=== PATIENT | female | born 1995 | race Hispanic/Latino ===

== ENCOUNTER 2017-09-17 21:16 | Emergency (ER) | payer MEDICAID, OTHER ==
[~2017-09-17 21:16] MED LIST: PREN1TAB89 PO
== END 2017-09-17 21:45 | disposition home or self-care (01) ==
LOC: EDH 21:16
DX: B88.0 Other acariasis (principal); Z98.890 Other specified postprocedural states
CPT/HCPCS: 99281

== ENCOUNTER 2017-11-13 22:09 | Emergency (ER) | payer OTHER ==
[2017-11-13 22:59] LABS: APPEARANCE,URINE Clear (CLEAR); BILIRUBIN,URINE Negative (NEGATIVE); COLOR,URINE Yellow (YELLOW); GLUCOSE, URINE (UA) Negative (NEGATIVE); KETONES,URINE Negative (NEGATIVE); LEUKOCYTE ESTERASE ,URINE Small (NEGATIVE); NITRATE,URINE Positive (NEGATIVE); OCCULT BLOOD,URINE Negative (NEGATIVE); PH,URINE 6.5 (5.0-8.0); PROTEIN,URINE Negative (NEGATIVE)
[2017-11-13 23:00] LABS: HCG,QUAL RESULT NEGATIVE (NEGATIVE)
[2017-11-13 23:15] LABS: BACTERIA,URINE Few /HPF (None Seen); RBC,URINE None Seen /HPF (0-1); SQUAMOUS EPITHELIAL CELL,UR Moderate /HPF (0-2)
== END 2017-11-13 23:20 | disposition home or self-care (01) ==
LOC: EDH 22:09
DX: N39.0 Urinary tract infection, site not specified (principal)
CPT/HCPCS: 81001; 81025

== ENCOUNTER 2018-07-23 20:45 | Observation (INO) | payer MEDICAID, OTHER ==
[~2018-07-23] VITALS: Ht 157.5 cm; Wt 89.4 kg
[2018-07-23] MEDS ORDERED: ONDANSETRON HCL 4 MG/2 ML VIAL ONE (21:04)
[2018-07-23] MEDS ORDERED: SODIUM CHLORIDE 0.9% 1000ML 1,000 ML IV ONE (21:04)
[2018-07-23] MEDS ORDERED: MORPHINE SULFATE 4 MG/1ML SYG ONE (21:04)
[2018-07-23 21:08] LABS: BASOPHILS % (AUTO) 0.3 % (0.0-5.0); EOSINOPHILS % (AUTO) 1.4 % (0.0-8.0); HEMATOCRIT 34.9 % (36-48); LYMPHOCYTES % (AUTO) 16.4 % (21.0-51.0); MEAN CORPUSCULAR HGB CONC 33.1 g/dL (32.0-36.0); MEAN CORPUSCULAR VOLUME 81.4 fL (79-99); MONOCYTES % (AUTO) 4.5 % (3.0-13.0); NEUTROPHILS % (AUTO) 77.4 % (40.0-77.0); PLATELET COUNT (AUTO) 257 K/uL (130-400); RED BLOOD CELL COUNT(AUTO) 4.29 MIL/uL (4.00-5.50); RED CELL DISTRIBUTION WIDTH 14.5 % (11.0-15.5); WHITE BLOOD COUNT (AUTO) 10.4 K/uL (4.8-10.8)
[2018-07-23 21:18] LABS: CREATININE 0.7 mg/dL (0.5-1.5); POTASSIUM 3.6 mmol/L (3.5-5.1)
[2018-07-23 21:19] LABS: INR 1.04 (0.85-1.15); PARTIAL THROMBOPLASTIN TIME 34.1 SEC (26.3-35.5); PROTHROMBIN TIME 10.9 SEC (9.6-11.6)
[2018-07-23 21:29] LABS: ALBUMIN 3.8 g/dL (3.5-5.0); BILIRUBIN,TOTAL 0.2 mg/dL (0.2-1.0)
[2018-07-23] MEDS ORDERED: MORPHINE SULFATE 2 MG/ML 1ML SYG ONE (22:19)
[2018-07-24] MEDS ORDERED: PROMETHAZINE HCL 25 MG/ML 1ML AMPULE IM PRN (00:15)
[2018-07-24] MEDS ORDERED: MEPERIDINE-PF 50 MG/ML SYG IM PRN (00:15)
[2018-07-24] MEDS ORDERED: POTASSIUM CHLORIDE 20 MEQ in DEXTROSE 5%-LACTATED RINGERS 990 ML IV SCH (00:15)
[2018-07-24 07:46] LABS: BASOPHILS % (AUTO) 0.6 % (0.0-5.0); EOSINOPHILS % (AUTO) 1.8 % (0.0-8.0); HEMATOCRIT 32.2 % (36-48); LYMPHOCYTES % (AUTO) 25.5 % (21.0-51.0); MEAN CORPUSCULAR HEMOGLOBIN 26.2 pg (27.0-33.0); MEAN CORPUSCULAR HGB CONC 31.9 g/dL (32.0-36.0); MEAN CORPUSCULAR VOLUME 82.1 fL (79-99); MONOCYTES % (AUTO) 6.4 % (3.0-13.0); NEUTROPHILS % (AUTO) 65.7 % (40.0-77.0); PLATELET COUNT (AUTO) 202 K/uL (130-400); RED BLOOD CELL COUNT(AUTO) 3.92 MIL/uL (4.00-5.50); RED CELL DISTRIBUTION WIDTH 14.4 % (11.0-15.5); WHITE BLOOD COUNT (AUTO) 8.3 K/uL (4.8-10.8)
[2018-07-24 08:00] VITALS: BP 109/73
--- NOTE | 2018-07-24 08:15 | NUR ---
MD DR. HUFF ROUNDING ON PATIENT. VAGINAL EXAM DONE AT BEDSIDE. MANDARIN SIZED UTERINE PRODUCT REMOVED DURING EXAM. PATIENT TOLERATED WELL. PATIENT OKAY FOR DISCHARGE;DISCHARGE POC DISCUSSED. PATIENT VERBALIZED UNDERSTANDING.
[2018-07-24 11:29] VITALS: BP 114/60
[2018-07-24 15:31] VITALS: BP 108/61
--- NOTE | 2018-07-24 16:15 | NUR ---
REPORT RECEIVED FROM GIBRAN LEVI AND PATIENT CARE TRANSFERED AT THIS TIME. PATIENT IS STABLE AND JUST WAITING ON IV FLUIDS TO BE COMPLETED FOR DISCHARGE. PATIENT WAS INFORMED OF DISCHARGE ORDER.
--- NOTE | 2018-07-24 19:10 | NUR ---
PATIENT WAS TAKEN VIA W/C TO [facility]ILY [facility] AND WAS DISCHARGED TO HER PARENTS IN STABLE CONDITION. PATIENT IS STABLE.
== END 2018-07-24 18:10 | disposition home or self-care (01) ==
LOC: EDH 20:45 → EDHIP 20:46 → WSH 07-24 08:00
PROVIDERS: ADMIT Specialist; ATTEND Specialist
DX: N93.9 Abnormal uterine and vaginal bleeding, unspecified (principal); Z98.891 History of uterine scar from previous surgery; Z79.01 Long term (current) use of anticoagulants
CPT/HCPCS: 36415 ×2; 76817; 80053; 83690; 84702; 85025 ×2; 85610; 85730; 86850; 86900; 86901; 86922; 88305; 99284; G0378 ×21; J2270; J2405; J3480; J3490; J7030

== ENCOUNTER 2019-03-21 22:10 | Emergency (ER) | payer MEDICAID, OTHER ==
[2019-03-21] MEDS ORDERED: ONDANSETRON ODT 4 MG TAB ONE (23:49)
[2019-03-21 23:52] LABS: BILIRUBIN,URINE Small (NEGATIVE); COLOR,URINE Dark Yellow (YELLOW); GLUCOSE, URINE (UA) Negative (NEGATIVE); KETONES,URINE Trace mg/dL (NEGATIVE); LEUKOCYTE ESTERASE ,URINE Moderate (NEGATIVE); NITRATE,URINE Positive (NEGATIVE); OCCULT BLOOD,URINE Negative (NEGATIVE); PROTEIN,URINE Trace mg/dL (NEGATIVE)
[2019-03-22] LABS: APPEARANCE,URINE CLOUDY (CLEAR); HCG,QUAL RESULT POSITIVE (NEGATIVE)
[2019-03-22 00:10] LABS: BACTERIA,URINE Moderate /HPF (None Seen); MUCUS,URINE Many LPF (None Seen); RBC,URINE None Seen /HPF (0-1); SQUAMOUS EPITHELIAL CELL,UR Few /HPF (0-2)
[2019-03-22] MEDS ORDERED: PHENAZOPYRIDINE HCL 200 MG TABLET ONE (00:16)
[2019-03-22] MEDS ORDERED: CEPHALEXIN 500 MG CAPSULE ONE (00:16)
== END 2019-03-22 00:53 | disposition home or self-care (01) ==
LOC: EDH 22:10
DX: N39.0 Urinary tract infection, site not specified (principal); Z33.1 Pregnant state, incidental; R11.0 Nausea; R42 Dizziness and giddiness; Z98.890 Other specified postprocedural states
CPT/HCPCS: 81001; 81025; 87077; 87088; 87186

== ENCOUNTER 2019-03-25 20:28 | Emergency (ER) | payer OTHER ==
[2019-03-25 21:16] LABS: BILIRUBIN,URINE Negative (NEGATIVE); COLOR,URINE Dark Yellow (YELLOW); GLUCOSE, URINE (UA) Negative (NEGATIVE); KETONES,URINE 15 mg/dL (NEGATIVE); LEUKOCYTE ESTERASE ,URINE Trace (NEGATIVE); NITRATE,URINE Negative (NEGATIVE); OCCULT BLOOD,URINE Negative (NEGATIVE); PROTEIN,URINE Negative (NEGATIVE)
[2019-03-25 21:17] LABS: APPEARANCE,URINE CLEAR (CLEAR)
[2019-03-25 21:23] LABS: RBC,URINE 0-1 /HPF (0-1)
[2019-03-25 21:24] LABS: BACTERIA,URINE Few /HPF (None Seen); MUCUS,URINE Moderate LPF (None Seen); SQUAMOUS EPITHELIAL CELL,UR Moderate /HPF (0-2)
== END 2019-03-25 22:17 | disposition home or self-care (01) ==
LOC: EDH 20:28
DX: O23.11 Infections of bladder in pregnancy, first trimester (principal); Z3A.01 Less than 8 weeks gestation of pregnancy
CPT/HCPCS: 81001

== ENCOUNTER 2019-04-22 10:08 | Emergency (ER) | payer MEDICAID ==
[2019-04-22 10:33] LABS: APPEARANCE,URINE SL CLOUDY (CLEAR); BILIRUBIN,URINE NEGATIVE (NEGATIVE); COLOR,URINE YELLOW (YELLOW); GLUCOSE, URINE (UA) NEGATIVE (NEGATIVE); KETONES,URINE 15 mg/dL (NEGATIVE); LEUKOCYTE ESTERASE ,URINE SMALL (NEGATIVE); NITRATE,URINE POSITIVE (NEGATIVE); OCCULT BLOOD,URINE LARGE (NEGATIVE); PROTEIN,URINE 100 mg/dL (NEGATIVE)
[2019-04-22 10:38] LABS: RBC,URINE 0-1 /HPF (0-1); WBC,URINE 51-100 /HPF (0-1)
[2019-04-22 10:39] LABS: BACTERIA,URINE Many /HPF (None Seen); MUCUS,URINE Rare LPF (None Seen); SQUAMOUS EPITHELIAL CELL,UR Rare /HPF (0-2)
[2019-04-22 10:55] LABS: BASOPHILS % (AUTO) 0.5 % (0.0-5.0); EOSINOPHILS % (AUTO) 1.1 % (0.0-8.0); HEMATOCRIT 38.3 % (36-48); MEAN CORPUSCULAR HGB CONC 33.4 g/dL (32.0-36.0); NEUTROPHILS % (AUTO) 74.4 % (40.0-77.0); PLATELET COUNT (AUTO) 213 K/uL (130-400); RED BLOOD CELL COUNT(AUTO) 4.56 MIL/uL (4.00-5.50); RED CELL DISTRIBUTION WIDTH 14.8 % (11.0-15.5)
[2019-04-22 11:04] LABS: CREATININE 0.7 mg/dL (0.5-1.5); POTASSIUM 3.3 mmol/L (3.5-5.1)
[2019-04-22] MEDS ORDERED: CEFTRIAXONE SODIUM 1 GM ONE (11:44)
[2019-04-22] MEDS ORDERED: LIDOCAINE HCL-MPF 1% 2ML VIAL ONE (11:44)
== END 2019-04-22 12:07 | disposition home or self-care (01) ==
LOC: EDH 10:08
DX: O23.41 Unspecified infection of urinary tract in pregnancy, first trimester (principal); Z3A.09 9 weeks gestation of pregnancy
CPT/HCPCS: 36415; 76801; 80048; 81001; 84702; 85025; 86900; 86901; 87077; 87088; 87186; 96372; 99285; J0696; J3490

== ENCOUNTER 2019-11-12 16:51 | Inpatient (IN) | payer MEDICAID ==
[~2019-11-12] VITALS: Ht 160 cm; Wt 76.2 kg
[2019-11-12] MEDS ORDERED: LACTATED RINGERS 1000ML 1,000 ML IV PRN (17:06)
[2019-11-12] MEDS ORDERED: OXYTOCIN-LR 20 UNITS/1000 ML 1,000 ML IV SCH (17:15)
[2019-11-12 17:51] LABS: HEMATOCRIT 35.6 % (36-48); MEAN CORPUSCULAR HEMOGLOBIN 25.3 pg (27.0-33.0); MEAN CORPUSCULAR HGB CONC 30.9 g/dL (32.0-36.0); MEAN CORPUSCULAR VOLUME 81.8 fL (79-99); PLATELET COUNT (AUTO) 210 K/uL (130-400); RED BLOOD CELL COUNT(AUTO) 4.35 MIL/uL (4.00-5.50); RED CELL DISTRIBUTION WIDTH 13.5 % (11.0-15.5)
[2019-11-12] MEDS ORDERED: LACTATED RINGERS 1000ML 1,000 ML IV SCH (18:15)
[2019-11-12] MEDS ORDERED: CEFAZOLIN SODIUM 1 GM VIAL IVP PRN (18:15)
[2019-11-12] MEDS ORDERED: DURAMORPH PF1 MG/ML 10ML AMP IV ONE (19:09)
[2019-11-12] MEDS ORDERED: CEFAZOLIN SODIUM 1 GM VIAL IVP ONE (19:13)
[2019-11-12] MEDS ORDERED: OXYTOCIN 10 UNIT/1ML 10ML VIAL ONE (19:27)
[2019-11-12] MEDS ORDERED: PROMETHAZINE HCL 25 MG/ML 1ML AMPULE IM PRN (20:00)
[2019-11-12] MEDS ORDERED: MEPERIDINE-PF 75 MG/ML SYG IM PRN (20:00)
[2019-11-12] MEDS ORDERED: DEXTROSE 5 %-0.45 % NACL 1,000 ML IV PRN (20:00)
[2019-11-12] MEDS ORDERED: SODIUM CHLORIDE 0.9% 10 ML VIAL IVP PRN (20:00)
[2019-11-12] MEDS ORDERED: OXYTOCIN-LR 20 UNITS/1000 ML 1,000 ML IV PRN (20:00)
[2019-11-12 20:49] VITALS: BP 112/73
[2019-11-12] MEDS ORDERED: DiphenhydrAMINE HCL 50 MG/ML VIAL IVP PRN (21:30)
[2019-11-12] MEDS ORDERED: NALOXONE HCL 0.4 MG/1 ML ML IVP PRN ×2 (21:30)
[2019-11-12] MEDS ORDERED: EPHEDRINE SULFATE 50 MG/ML AMPULE IVP PRN (21:30)
[2019-11-12] MEDS ORDERED: ONDANSETRON HCL 4 MG/2 ML VIAL ONE (21:53)
[2019-11-12 22:00] VITALS: BP 121/67
[2019-11-12] MEDS ORDERED: AMOX500C2 PO (22:24)
[2019-11-12 23:58] VITALS: BP 119/79
[2019-11-13] MEDS ORDERED: MEPERIDINE-PF 100 MG/ML SYG ONE (00:14)
[2019-11-13] MEDS ORDERED: ONDANSETRON HCL 4 MG/2 ML VIAL ONE (02:39)
[2019-11-13 03:27] VITALS: BP 109/65
[2019-11-13 06:42] LABS: HEMATOCRIT 29.3 % (36-48); MEAN CORPUSCULAR HEMOGLOBIN 25.8 pg (27.0-33.0); MEAN CORPUSCULAR HGB CONC 31.1 g/dL (32.0-36.0); RED BLOOD CELL COUNT(AUTO) 3.53 MIL/uL (4.00-5.50); RED CELL DISTRIBUTION WIDTH 13.6 % (11.0-15.5); WHITE BLOOD COUNT (AUTO) 10.2 K/uL (4.8-10.8)
[2019-11-13 07:45] VITALS: BP 114/71
--- NOTE | 2019-11-13 07:45 | NUR ---
arriaza catheter removed, tip intact, pericare done, abdominal dressing removed, applied telfa dressing, applied abdominal binder, assisted to bedside chair. pt tolerated well. Addendum: 11/13/19 at 0823 by TESS CHOI RN Amended: Links added.
[2019-11-13] MEDS ORDERED: IBUPROFEN 600 MG TABLET PO PRN (08:30)
[2019-11-13] MEDS ORDERED: HYDROCODONE/ACETAMINOPHEN 5/325 MG TAB PO PRN (08:30)
[2019-11-13] MEDS ORDERED: ACETAMINOPHEN EXTRA STRENGTH 500 MG TABLET PO PRN (08:30)
[2019-11-13] MEDS ORDERED: BISACODYL 10 MG SUPP.RECT RC PRN (08:30)
[2019-11-13] MEDS ORDERED: ACETAMINOPHEN-CODEINE 300/30MG TAB PO PRN (08:30)
[2019-11-13] MEDS ORDERED: LANOLIN 30GM OINTMENT TP PRN (08:30)
[2019-11-13] MEDS ORDERED: ONDANSETRON HCL 4 MG/2 ML VIAL IVP PRN (08:45)
[2019-11-13] MEDS: SIMETHICONE 80 MG TAB.CHEW PO PRN ×2 (09:06→10:45)
[2019-11-13] MEDS: DOCUSATE SODIUM 100 MG CAP PO SCH ×2 (09:06→10:45)
[2019-11-13 11:53] VITALS: BP 119/63
[2019-11-13 16:16] VITALS: BP 100/51
[2019-11-13] MEDS ORDERED: ACET1TAB12 PO (17:02)
[2019-11-13] MEDS ORDERED: FERR325T22 PO (17:03)
--- NOTE | 2019-11-13 17:20 | NUR ---
verbal and written discharge instructions given, informed of the follow up appointment, prescription faxed to pharmacy as requested by pt. all questions answered, informed to call the doctor for future concerns, pt voiced understanding to all things discussed. Addendum: 11/13/19 at 1855 by TESS CHOI RN Amended: Links added.
[2019-11-13] MEDS ORDERED: IBUPROFEN 800 MG TAB PO SCH (20:00)
--- NOTE | 2019-11-13 21:36 | NUR ---
PATIENT DISCHARGES; Patient discharges home via wheelchair with baby in her arms. She is wheeled out by Tali Hector RN. Discharges instruction reviewed verbalizes understanding. She and armida discharges on stable condition.
--- NOTE | 2019-11-13 21:52 | NUR ---
Communication: Ricki Figueroa RN called claimed, " Patient is coming back to her room till somebody will pick her up. 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
--- NOTE | 2019-11-13 22:05 | NUR ---
Patient ready to go home. Patient and baby were discharges via wheelchair accompanied by Tali Hector RN. They were out of the facility riding with their Aunt's Car.
[2019-11-14 08:11] LABS: HEPATITIS Bs ANTIGEN SCREEN P Negative (Negative)
== END 2019-11-13 22:05 | disposition home or self-care (01) | DRG 540 ==
LOC: OBSVTOIN 16:51 → LDH 16:51 → WSH 22:09 → EDSTATUS 11-15 10:00
PROVIDERS: ADMIT Specialist; ATTEND Specialist
PROC: 10D00Z1 Extraction of Products of Conception, Low, Open Approach (ICD-10-PCS; principal; 2019-11-12 19:00)
DX: O34.211 Maternal care for low transverse scar from previous cesarean delivery (principal); O36.8130 Decreased fetal movements, third trimester, not applicable or unspecified; Z37.0 Single live birth; Z3A.38 38 weeks gestation of pregnancy; O76 Abnormality in fetal heart rate and rhythm complicating labor and delivery; O69.81X0 Labor and delivery complicated by cord around neck, without compression, not applicable or unspecified
CPT/HCPCS: 36415; 59510; 85027; 86592; 86850; 86900; 86901; 87340; A4344; G0378; J0690; J2175; J2274; J2405; J2550; J2590; J7120

== ENCOUNTER 2019-11-17 14:41 | Emergency (ER) | payer MEDICAID ==
[~2019-11-17 14:41] MED LIST changes: +ACET1TAB12 PO; +AMOX500C2 PO; +FERR325T22 PO; -PREN1TAB89 PO
[2019-11-17 15:57] LABS: BASOPHILS % (AUTO) 0.2 % (0.0-5.0); EOSINOPHILS % (AUTO) 5.6 % (0.0-8.0); HEMATOCRIT 31.9 % (36-48); MEAN CORPUSCULAR HEMOGLOBIN 25.1 pg (27.0-33.0); MONOCYTES % (AUTO) 5.6 % (3.0-13.0); NEUTROPHILS % (AUTO) 66.3 % (40.0-77.0); PLATELET COUNT (AUTO) 289 K/uL (130-400); RED BLOOD CELL COUNT(AUTO) 3.94 MIL/uL (4.00-5.50); RED CELL DISTRIBUTION WIDTH 14.2 % (11.0-15.5); WHITE BLOOD COUNT (AUTO) 6.3 K/uL (4.8-10.8)
[2019-11-17 15:59] LABS: APPEARANCE,URINE Clear (CLEAR); BILIRUBIN,URINE Negative (NEGATIVE); COLOR,URINE Dark Yellow (YELLOW); GLUCOSE, URINE (UA) Negative (NEGATIVE); KETONES,URINE Trace mg/dL (NEGATIVE); LEUKOCYTE ESTERASE ,URINE Small (NEGATIVE); NITRATE,URINE Negative (NEGATIVE); OCCULT BLOOD,URINE Moderate (NEGATIVE); PROTEIN,URINE 300 mg/dL (NEGATIVE)
[2019-11-17 16:06] LABS: BACTERIA,URINE Few /HPF (None Seen)
[2019-11-17 16:07] LABS: MUCUS,URINE Few LPF (None Seen); SQUAMOUS EPITHELIAL CELL,UR 0-2 /HPF (0-2)
[2019-11-17 16:09] LABS: CREATININE 0.7 mg/dL (0.5-1.5); POTASSIUM 3.7 mmol/L (3.5-5.1)
[2019-11-17 16:13] LABS: ALBUMIN 2.8 g/dL (3.5-5.0); BILIRUBIN,TOTAL 0.4 mg/dL (0.2-1.0); TOTAL PROTEIN, SERUM 7.4 g/dL (6.0-8.3)
== END 2019-11-17 16:25 | disposition home or self-care (01) ==
LOC: EDH 14:41
DX: N39.0 Urinary tract infection, site not specified (principal); Z98.890 Other specified postprocedural states
CPT/HCPCS: 36415; 80053; 81001; 85025

== ENCOUNTER 2020-04-10 12:43 | Emergency (ER) | payer MEDICAID ==
[2020-04-10 13:07] LABS: BASOPHILS % (AUTO) 0.5 % (0.0-5.0); EOSINOPHILS % (AUTO) 1.8 % (0.0-8.0); HEMATOCRIT 35.5 % (36-48); LYMPHOCYTES % (AUTO) 27.2 % (21.0-51.0); MEAN CORPUSCULAR HEMOGLOBIN 24.7 pg (27.0-33.0); MEAN CORPUSCULAR HGB CONC 30.7 g/dL (32.0-36.0); MEAN CORPUSCULAR VOLUME 80.5 fL (79-99); MONOCYTES % (AUTO) 6.8 % (3.0-13.0); NEUTROPHILS % (AUTO) 63.4 % (40.0-77.0); PLATELET COUNT (AUTO) 273 K/uL (130-400); RED BLOOD CELL COUNT(AUTO) 4.41 MIL/uL (4.00-5.50); RED CELL DISTRIBUTION WIDTH 14.7 % (11.0-15.5); WHITE BLOOD COUNT (AUTO) 6.2 K/uL (4.8-10.8)
== END 2020-04-10 14:54 | disposition home or self-care (01) ==
LOC: EDH 12:43
DX: O20.0 Threatened abortion (principal); Z3A.01 Less than 8 weeks gestation of pregnancy; Z98.890 Other specified postprocedural states
CPT/HCPCS: 36415; 76801; 84702; 85025; 86900; 86901

== ENCOUNTER 2020-04-13 22:49 | Emergency (ER) | payer MEDICAID ==
[2020-04-14 00:43] LABS: BASOPHILS % (AUTO) 0.5 % (0.0-5.0); EOSINOPHILS % (AUTO) 2.9 % (0.0-8.0); HEMATOCRIT 39.8 % (36-48); LYMPHOCYTES % (AUTO) 28.1 % (21.0-51.0); MEAN CORPUSCULAR HEMOGLOBIN 24.9 pg (27.0-33.0); MEAN CORPUSCULAR HGB CONC 31.2 g/dL (32.0-36.0); MEAN CORPUSCULAR VOLUME 80.1 fL (79-99); MONOCYTES % (AUTO) 5.2 % (3.0-13.0); PLATELET COUNT (AUTO) 278 K/uL (130-400); RED BLOOD CELL COUNT(AUTO) 4.97 MIL/uL (4.00-5.50); RED CELL DISTRIBUTION WIDTH 14.6 % (11.0-15.5); WHITE BLOOD COUNT (AUTO) 7.6 K/uL (4.8-10.8)
[2020-04-14 00:44] LABS: CREATININE 0.7 mg/dL (0.5-1.5); POTASSIUM 3.8 mmol/L (3.5-5.1)
[2020-04-14 01:10] LABS: ALBUMIN 3.6 g/dL (3.5-5.0); BILIRUBIN,TOTAL 0.2 mg/dL (0.2-1.0); TOTAL PROTEIN, SERUM 7.9 g/dL (6.0-8.3)
== END 2020-04-14 02:05 | disposition home or self-care (01) ==
LOC: EDH 22:49
DX: O03.9 Complete or unspecified spontaneous abortion without complication (principal); Z3A.01 Less than 8 weeks gestation of pregnancy
CPT/HCPCS: 36415; 76801; 80053; 84702; 85025

== ENCOUNTER 2020-09-25 23:07 | Emergency (ER) | payer MEDICAID ==
[2020-09-25 23:46] LABS: BASOPHILS % (AUTO) 0.4 % (0.0-5.0); EOSINOPHILS % (AUTO) 2.5 % (0.0-8.0); HEMATOCRIT 34.5 % (36-48); LYMPHOCYTES % (AUTO) 27.7 % (21.0-51.0); MEAN CORPUSCULAR VOLUME 77.5 fL (79-99); MONOCYTES % (AUTO) 5.9 % (3.0-13.0); NEUTROPHILS % (AUTO) 63.2 % (40.0-77.0); PLATELET COUNT (AUTO) 279 K/uL (130-400); RED BLOOD CELL COUNT(AUTO) 4.45 MIL/uL (4.00-5.50); RED CELL DISTRIBUTION WIDTH 14.4 % (11.0-15.5)
[2020-09-25 23:56] LABS: CREATININE 0.6 mg/dL (0.5-1.5); POTASSIUM 3.6 mmol/L (3.5-5.1)
[2020-09-26 00:02] LABS: ALBUMIN 3.1 g/dL (3.5-5.0); BILIRUBIN,TOTAL 0.2 mg/dL (0.2-1.0); TOTAL PROTEIN, SERUM 7.5 g/dL (6.0-8.3)
== END 2020-09-26 04:20 | disposition home or self-care (01) ==
LOC: EDH 23:07
DX: O9A.212 Injury, poisoning and certain other consequences of external causes complicating pregnancy, second trimester (principal); T14.8XXA Other injury of unspecified body region, initial encounter; Z3A.14 14 weeks gestation of pregnancy; Z98.890 Other specified postprocedural states; X58.XXXA Exposure to other specified factors, initial encounter; Y93.89 Activity, other specified; Y92.89 Other specified places as the place of occurrence of the external cause; Y99.8 Other external cause status
CPT/HCPCS: 36415; 80053; 85025; 93005

== ENCOUNTER 2020-12-03 17:10 | Observation (INO) | payer MEDICAID ==
[~2020-12-03] VITALS: Ht 157.5 cm; Wt 73.9 kg
[2020-12-03 17:13] VITALS: BP 120/57
[2020-12-03 17:52] LABS: APPEARANCE,URINE Clear (CLEAR); BILIRUBIN,URINE Negative (NEGATIVE); COLOR,URINE Yellow (YELLOW); GLUCOSE, URINE (UA) Negative (NEGATIVE); KETONES,URINE 40 mg/dL (NEGATIVE); LEUKOCYTE ESTERASE ,URINE Small (NEGATIVE); NITRATE,URINE Positive (NEGATIVE); OCCULT BLOOD,URINE Negative (NEGATIVE); PROTEIN,URINE Negative (NEGATIVE)
[2020-12-03 18:06] LABS: BACTERIA,URINE Many /HPF (None Seen); MUCUS,URINE Few LPF (None Seen); SQUAMOUS EPITHELIAL CELL,UR Many /HPF (0-2)
== END 2020-12-03 20:45 | disposition home or self-care (01) ==
LOC: EDH 17:10 → LDH 17:11
PROVIDERS: ADMIT Specialist; ATTEND Specialist
DX: O36.8120 Decreased fetal movements, second trimester, not applicable or unspecified (principal); W18.39XA Other fall on same level, initial encounter; Y93.89 Activity, other specified; Y92.89 Other specified places as the place of occurrence of the external cause; Z3A.24 24 weeks gestation of pregnancy
CPT/HCPCS: 59025; 81001; 87077; 87088; 87186; G0378 ×4

== ENCOUNTER 2021-02-12 14:57 | Observation (INO) | payer MEDICAID ==
[~2021-02-12] VITALS: Ht 162.6 cm; Wt 83.9 kg
[2021-02-12 14:59] VITALS: BP 109/59
[2021-02-12 15:49] LABS: APPEARANCE,URINE Clear (CLEAR); BILIRUBIN,URINE Negative (NEGATIVE); COLOR,URINE Yellow (YELLOW); GLUCOSE, URINE (UA) TRACE mg/dL (NEGATIVE); KETONES,URINE Negative (NEGATIVE); LEUKOCYTE ESTERASE ,URINE Small (NEGATIVE); NITRATE,URINE Positive (NEGATIVE); OCCULT BLOOD,URINE Negative (NEGATIVE); PH,URINE 6.5 (5.0-8.0); PROTEIN,URINE Negative (NEGATIVE)
[2021-02-12 16:06] VITALS: BP 111/63
[2021-02-12 16:29] LABS: BACTERIA,URINE Many /HPF (None Seen); MUCUS,URINE Few LPF (None Seen); SQUAMOUS EPITHELIAL CELL,UR Few /HPF (0-2)
== END 2021-02-12 16:43 | disposition home or self-care (01) ==
LOC: EDH 14:57 → LDH 14:58 → EDH 15:08
PROVIDERS: ADMIT Specialist; ATTEND Specialist
DX: O36.8130 Decreased fetal movements, third trimester, not applicable or unspecified (principal); Z3A.34 34 weeks gestation of pregnancy; Z98.891 History of uterine scar from previous surgery; Z79.899 Other long term (current) drug therapy
CPT/HCPCS: 59025; 76819; 81001; 87077; 87088; 87186; G0378

== ENCOUNTER 2021-03-10 09:00 | Inpatient (IN) | payer MEDICAID ==
[~2021-03-10] VITALS: Ht 160 cm; Wt 88.0 kg
[2021-03-17 05:29] VITALS: BP 120/70
[2021-03-17] MEDS ORDERED: LACTATED RINGERS 1000ML 1,000 ML IV SCH (05:30)
[2021-03-17] MEDS ORDERED: CEFAZOLIN SODIUM 1 GM VIAL IVP PRN (05:30)
[2021-03-17] MEDS ORDERED: CITRIC ACID/SODIUM CITRATE 30 ML UDCUP PO PRN (05:30)
[2021-03-17 06:05] LABS: MEAN CORPUSCULAR HEMOGLOBIN 21.4 pg (27.0-33.0); MEAN CORPUSCULAR HGB CONC 28.9 g/dL (32.0-36.0); MEAN CORPUSCULAR VOLUME 73.9 fL (79-99); PLATELET COUNT (AUTO) 242 K/uL (130-400); RED BLOOD CELL COUNT(AUTO) 3.79 MIL/uL (4.00-5.50); RED CELL DISTRIBUTION WIDTH 15.9 % (11.0-15.5); WHITE BLOOD COUNT (AUTO) 8.6 K/uL (4.8-10.8)
[2021-03-17 06:25] LABS: APPEARANCE,URINE Clear (CLEAR); BILIRUBIN,URINE Negative (NEGATIVE); COLOR,URINE Yellow (YELLOW); GLUCOSE, URINE (UA) Negative (NEGATIVE); KETONES,URINE Negative (NEGATIVE); LEUKOCYTE ESTERASE ,URINE Negative (NEGATIVE); NITRATE,URINE Negative (NEGATIVE); OCCULT BLOOD,URINE Negative (NEGATIVE); PROTEIN,URINE Negative (NEGATIVE)
[2021-03-17] MEDS ORDERED: OXYTOCIN 10 USP UNITS/ML ONE (07:19)
[2021-03-17] MEDS ORDERED: MORPHINE PF 100MG/10ML AMP IV ONE (07:19)
[2021-03-17] MEDS ORDERED: CEFAZOLIN SODIUM 1 GM VIAL IVP ONE (07:30)
[2021-03-17] MEDS ORDERED: GLYCOPYRROLATE 1 MG/5 ML SYRINGE ONE (07:36)
[2021-03-17] MEDS ORDERED: ONDANSETRON 4MG INJ ONE (07:56)
[2021-03-17] MEDS ORDERED: OXYTOCIN-LR 20 UNITS/1000 ML 1,000 ML IV ONE (08:07)
[2021-03-17] MEDS ORDERED: PHENYLEPHRINE HCL 10 MG/ML 1ML VIAL IV ONE (08:12)
[2021-03-17] MEDS ORDERED: 0.9%NACL 10ML VIAL ONE (08:12)
[2021-03-17] MEDS ORDERED: OXYTOCIN-LR 20 UNITS/1000 ML 1,000 ML IV PRN (08:30)
[2021-03-17] MEDS ORDERED: 0.9%NACL 10ML VIAL IVP PRN (08:30)
[2021-03-17] MEDS: PROMETHAZINE HCL 25 MG/ML 1ML AMPULE IM PRN (10:00)
[2021-03-17] MEDS: MEPERIDINE-PF 75 MG/ML SYG IM PRN (10:00)
[2021-03-17 10:10] VITALS: BP 120/73
[2021-03-17 11:42] VITALS: BP 101/56
[2021-03-17 16:10] VITALS: BP 101/66
[2021-03-17 19:50] VITALS: BP 114/74
[2021-03-17] MEDS: DEXTROSE 5 %-0.45 % NACL 1,000 ML IV PRN (20:08)
[2021-03-17 23:15] VITALS: BP 100/59
[2021-03-18] MEDS: DEXTROSE 5 %-0.45 % NACL 1,000 ML IV PRN (02:37)
[2021-03-18 03:43] VITALS: BP 95/64
[2021-03-18] MEDS: PROMETHAZINE HCL 25 MG/ML 1ML AMPULE IM PRN (05:20)
[2021-03-18] MEDS: MEPERIDINE-PF 75 MG/ML SYG IM PRN (05:21)
[2021-03-18 06:56] LABS: HEMATOCRIT 23.5 % (36-48); MEAN CORPUSCULAR HGB CONC 28.9 g/dL (32.0-36.0); MEAN CORPUSCULAR VOLUME 72.5 fL (79-99); RED BLOOD CELL COUNT(AUTO) 3.24 MIL/uL (4.00-5.50); RED CELL DISTRIBUTION WIDTH 15.7 % (11.0-15.5); WHITE BLOOD COUNT (AUTO) 9.9 K/uL (4.8-10.8)
[2021-03-18 07:16] LABS: HEPATITIS Bs ANTIGEN SCREEN P Negative (Negative)
[2021-03-18 07:33] VITALS: BP 106/67
[2021-03-18] MEDS ORDERED: HYDROCODONE/ACETAMINOPHEN 5/325 MG TAB PO PRN (08:00)
[2021-03-18] MEDS ORDERED: ACETAMINOPHEN 500 MG TABLET PO PRN (08:00)
[2021-03-18] MEDS ORDERED: BISACODYL 10 MG SUPP.RECT RC PRN (08:00)
[2021-03-18] MEDS ORDERED: ACETAMINOPHEN WITH CODEINE 1 TAB TAB PO PRN (08:00)
[2021-03-18] MEDS ORDERED: IBUPROFEN 600 MG TABLET PO PRN (08:00)
[2021-03-18] MEDS: SIMETHICONE 80 MG TAB.CHEW PO PRN ×2 (08:13→20:21)
[2021-03-18] MEDS: DOCUSATE SODIUM 100 MG CAP PO SCH ×2 (08:13→20:21)
[2021-03-18] MEDS: IBUPROFEN 800 MG TAB PO SCH ×2 (08:14→16:39)
[2021-03-18 16:34] VITALS: BP 109/66
[2021-03-18 19:17] VITALS: BP 106/59
[2021-03-18 23:12] VITALS: BP 98/48
[2021-03-19 03:12] VITALS: BP 106/62
[2021-03-19 07:26] VITALS: BP 102/59
[2021-03-19] MEDS: SIMETHICONE 80 MG TAB.CHEW PO PRN (08:53)
[2021-03-19] MEDS: DOCUSATE SODIUM 100 MG CAP PO SCH (08:53)
[2021-03-19] MEDS: IBUPROFEN 800 MG TAB PO SCH ×2 (08:55)
[2021-03-19 11:26] VITALS: BP 98/63
== END 2021-03-19 12:30 | disposition home or self-care (01) | DRG 540 ==
LOC: LDH 03-17 05:09 → WSH 03-17 10:05
PROVIDERS: ADMIT Specialist; ATTEND Specialist
PROC: 10D00Z1 Extraction of Products of Conception, Low, Open Approach (ICD-10-PCS; 2021-03-17)
PROC: 0UB70ZZ Excision of Bilateral Fallopian Tubes, Open Approach (ICD-10-PCS; principal; 2021-03-17 08:00)
DX: O34.211 Maternal care for low transverse scar from previous cesarean delivery (principal); N73.6 Female pelvic peritoneal adhesions (postinfective); Z20.822 Contact with and (suspected) exposure to COVID-19; Z37.0 Single live birth; Z3A.39 39 weeks gestation of pregnancy; Z30.2 Encounter for sterilization; Z83.3 Family history of diabetes mellitus; O99.892 Other specified diseases and conditions complicating childbirth
CPT/HCPCS: 36415; 59510; 81003; 85027; 86592; 86850; 86900; 86901; 87340; 87635; 88302; A4344; G0378; J0690; J2175; J2274; J2370; J2405; J2550; J2590; J3490; J7120

== ENCOUNTER 2021-05-29 11:37 | Emergency (ER) | payer MEDICAID ==
[~2021-05-29] VITALS: Ht 160 cm; Wt 73.9 kg
[2021-05-29] MEDS ORDERED: ONDANSETRON 4MG INJ ONE (14:52)
[2021-05-29] MEDS ORDERED: ONDANSETRON 4MG INJ IVP ONE (15:00)
[2021-05-29] MEDS ORDERED: 0.9%NACL 1000ML 1,000 ML IV ONE (15:00)
[2021-05-29 15:22] LABS: BASOPHILS % (AUTO) 0.1 % (0.0-5.0); EOSINOPHILS % (AUTO) 3.6 % (0.0-8.0); HEMATOCRIT 34.2 % (36-48); MEAN CORPUSCULAR HEMOGLOBIN 19.8 pg (27.0-33.0); MEAN CORPUSCULAR HGB CONC 28.7 g/dL (32.0-36.0); MEAN CORPUSCULAR VOLUME 69.2 fL (79-99); MONOCYTES % (AUTO) 5.6 % (3.0-13.0); NEUTROPHILS % (AUTO) 74.5 % (40.0-77.0); PLATELET COUNT (AUTO) 333 K/uL (130-400); RED BLOOD CELL COUNT(AUTO) 4.94 MIL/uL (4.00-5.50); RED CELL DISTRIBUTION WIDTH 15.4 % (11.0-15.5); WHITE BLOOD COUNT (AUTO) 8.9 K/uL (4.8-10.8)
[2021-05-29 15:36] LABS: APPEARANCE,URINE Clear (CLEAR); BILIRUBIN,URINE Negative (NEGATIVE); COLOR,URINE Yellow (YELLOW); GLUCOSE, URINE (UA) Negative (NEGATIVE); KETONES,URINE 15 mg/dL (NEGATIVE); LEUKOCYTE ESTERASE ,URINE Negative (NEGATIVE); NITRATE,URINE Negative (NEGATIVE); OCCULT BLOOD,URINE Negative (NEGATIVE); PH,URINE 5.5 (5.0-8.0); PROTEIN,URINE Negative (NEGATIVE)
[2021-05-29 15:39] LABS: CREATININE 0.7 mg/dL (0.5-1.5); POTASSIUM 4.2 mmol/L (3.5-5.1)
[2021-05-29 15:43] LABS: BILIRUBIN,TOTAL 0.4 mg/dL (0.2-1.0); TOTAL PROTEIN, SERUM 8.2 g/dL (6.0-8.3)
[2021-05-29] MEDS ORDERED: MECL-160 PO (16:47)
[2021-05-29] MEDS ORDERED: ONDA4TAB4 PO (16:47)
[2021-05-29 16:53] VITALS: BP 110/70
== END 2021-05-29 17:00 | disposition home or self-care (01) ==
LOC: EDH 11:37
DX: E86.0 Dehydration (principal); R42 Dizziness and giddiness; Z79.899 Other long term (current) drug therapy
CPT/HCPCS: 36415; 80053; 81003; 84703; 85025; 93005; 96361 ×2; 96374; 99284; J2405; J7030